=== PATIENT | male | born 1960 | race Two or more races ===

== ENCOUNTER 2021-04-22 10:16 | Inpatient (IN) | payer MEDICAID, OTHER ==
[~2021-04-22] VITALS: Ht 175.3 cm; Wt 71.9 kg
[2021-04-22 11:01] LABS: Basophils # (auto) 0.1 10 ^3/uL (0-0.2); Basophils % (auto) 0.4 % (0.0-2.0); Eosinophils # (auto) 0 10 ^3/uL (0-0.8); Hematocrit 50.6 % (41.0-53.0); Hemoglobin 17.1 g/dL (13.5-17.5); Lymphocytes # (auto) 1.5 10 ^3/uL (0.4-5.4); Lymphocytes % (auto) 8.8 % (10.0-50.0); Mean Corpuscular Hemoglobin 29.6 pg (28.0-32.0); Mean Corpuscular Hgb Conc. 33.9 g/dL (32.0-36.0); Mean Corpuscular Volume 87.4 fL (80.0-100.0); Monocytes # (auto) 0.4 10 ^3/uL (0-1.3); Monocytes % (auto) 2.6 % (0.0-12.0); Neutrophils % (auto) 88.2 % (37.0-80.0); Nucleated Red Blood Cells % 0.1 %; Red Blood Cells 5.79 10^6/uL (4.5-5.90); Red Cell Distribution Width 14.8 % (11.8-14.3)
[2021-04-22 11:25] LABS: Albumin 4.9 g/dL (3.4-5.0); Calcium 10.4 mg/dL (8.5-10.1); Potassium 5.1 mmol/L (3.5-5.1)
[2021-04-22 11:28] LABS: BUN/Creatinine Ratio 8.9; Bilirubin, Total 0.6 mg/dL (0.2-1.0); Total Protein 9.8 g/dL (6.4-8.2)
[2021-04-22] MEDS ORDERED: cloNIDine HCL 0.1 MG TAB PO ONE (15:45)
[2021-04-22] MEDS ORDERED: MORPHINE SULFATE 4 MG/ML SYR/VIAL IV ONE (16:00)
[2021-04-22] MEDS ORDERED: ONDANSETRON HCL 4 MG/2 ML VIAL IV ONE (16:00)
[2021-04-22] MEDS ORDERED: NITROGLYCERIN 0.4 MG SL TAB SL PRN ×2 (16:30→20:00)
[2021-04-22] MEDS ORDERED: MORPHINE SULFATE INJECTION 2 MG/2 ML SYRG IV PRN ×2 (16:30→20:00)
[2021-04-22] MEDS ORDERED: LABETALOL HCL 5 MG/ML 4ML SYRINGE IV ONE (16:30)
[2021-04-22] MEDS ORDERED: FUROSEMIDE 40 MG/4 ML VIAL IV ONE (16:30)
[2021-04-22] MEDS ORDERED: MULT1TAB28 PO (16:45)
[2021-04-22] MEDS ORDERED: LORazepam 2MG/ML-1ML VIAL IV ONE (16:45)
[2021-04-22] MEDS ORDERED: CLON0.1T PO (16:45)
[2021-04-22] MEDS ORDERED: METF-371 PO (16:45)
[2021-04-22] MEDS ORDERED: ENAL10TA13 PO (16:45)
[2021-04-22] MEDS ORDERED: MAGNESIUM SULFATE 1GM/100ML 100 ML IV ONE (18:00)
[2021-04-22] MEDS ORDERED: METOPROLOL TARTRATE 1MG/1ML-5ML VIAL IV PRN (18:00)
[2021-04-22] MEDS: SODIUM ZIRCONIUM CYCL 10 GM PAK PO SCH (18:09)
[2021-04-22] MEDS ORDERED: MORPHINE SULFATE INJECTION 2 MG/2 ML SYRG IV ONE (19:15)
[2021-04-22] MEDS ORDERED: SODIUM BICARBONATE 8.4 % INJ 50ML VIAL IV ONE ×2 (19:15→19:45)
[2021-04-22] MEDS ORDERED: ETOMIDATE (2MG/ML) 20ML VIAL IV ONE (19:33)
[2021-04-22] MEDS ORDERED: SUCCINYLCHOLINE CHLORIDE 20 MG/ML 10ML VIAL IV ONE (19:33)
[2021-04-22] MEDS ORDERED: MIDAZOLAM DRIP 50 mg/50mL 50 ML IV ONE (19:44)
[2021-04-22] MEDS ORDERED: BUMETANIDE 2.5mg/10ml (0.25 mg/ml) INJ IV ONE (19:45)
[2021-04-22] MEDS ORDERED: SODIUM BICARBONATE 50ML VIAL 50 ML in D5W 5% 1,000 ML IV SCH (19:45)
[2021-04-22 19:48] VITALS: BP 139/71
[2021-04-22] MEDS ORDERED: CLINDAMYCIN 300MG IV 50 ML IV ONE (20:00)
[2021-04-22] MEDS ORDERED: ALUM & MAG HYDROX-SIMETH LIQ(MAALOX) 30 ML PO PRN (20:00)
[2021-04-22] MEDS ORDERED: DEXTROSE (50%) 50ML SYRG IV PRN (20:00)
[2021-04-22] MEDS ORDERED: LORazepam 0.5 MG TAB PO PRN (20:00)
[2021-04-22] MEDS ORDERED: ONDANSETRON HCL 4 MG/2 ML VIAL IV PRN (20:00)
[2021-04-22] MEDS ORDERED: DOCUSATE SOD 100 MG CAP PO PRN (20:00)
[2021-04-22] MEDS ORDERED: HYDROcodone-ACET 5/325MG TAB PO PRN (20:00)
[2021-04-22] MEDS ORDERED: ACETAMINOPHEN 325 MG TAB PO PRN (20:00)
[2021-04-22] MEDS ORDERED: AZTREONAM 1GM INJ 1 GM in D5W 5% 50 ML IV ONE (21:00)
[2021-04-22] MEDS ORDERED: NOREPINEPHRINE 8 MG/250ML KIT 250 ML IV ONE (21:17)
[2021-04-22] MEDS ORDERED: DOPamine 1600MCG/ML D5W 250 ML IV ONE (21:29)
[2021-04-22 21:38] LABS: Cholesterol 185 mg/dL (< 200)
[2021-04-22 21:41] LABS: HDL Cholesterol 45 mg/dL (40-59); LDL Cholesterol 110 mg/dL (< 100); Triglycerides 321 mg/dL (< 150)
[2021-04-22 21:52] LABS: Lactic Acid w/Reflex 20.5 mmol/L (0.4-2.0)
[2021-04-22] MEDS: NOREPINEPHRINE 8 MG/250ML KIT 250 ML IV SCH (21:54)
[2021-04-22] MEDS: DOPamine 1600MCG/ML D5W 250 ML IV SCH (21:55)
[2021-04-22] MEDS ORDERED: dilTIAZem 25 MG/5 ML VIAL IV ONE (22:30)
[2021-04-23] VITALS (97 sets, daily range): BP systolic 84–209; BP diastolic 29–108
[2021-04-23] MEDS: ACCU-CHEK COMFORT CURVE STRIP VI SCH ×13 (00:15→23:00)
[2021-04-23] MEDS ORDERED: SODIUM BICARBONATE 8.4 % INJ 50ML VIAL IV ONE ×2 (00:15→03:30)
[2021-04-23 00:17] LABS: Albumin 3.6 g/dL (3.4-5.0); BUN/Creatinine Ratio 9.3; Calcium 9.3 mg/dL (8.5-10.1); Potassium 4.6 mmol/L (3.5-5.1)
[2021-04-23 00:20] LABS: Bilirubin, Total 0.8 mg/dL (0.2-1.0); Total Protein 8.2 g/dL (6.4-8.2)
[2021-04-23] MEDS ORDERED: dilTIAZem 25 MG/5 ML VIAL IV PRN (01:00)
[2021-04-23] MEDS ORDERED: PHENYLEPHRINE IV 250 ML IV ONE (01:25)
[2021-04-23] MEDS: InsuLIN REG 1unit/0.01ml Soln (100units/ml) SC SCH ×2 (01:40→06:00)
[2021-04-23] MEDS: PHENYLEPHRINE IV 250 ML IV SCH ×4 (02:15→14:45)
[2021-04-23] MEDS: PROPOFOL 100 ML IV SCH (02:45)
[2021-04-23] MEDS: MIDAZOLAM DRIP 50 mg/50mL 50 ML IV SCH ×2 (02:53→11:28)
[2021-04-23] MEDS: LABETALOL HCL 200 MG TAB PO SCH ×2 (02:54→10:00)
[2021-04-23] MEDS ORDERED: SODIUM BICARBONATE 8.4% INJ 50ML SYRINGE ONE (03:29)
[2021-04-23] MEDS: CLINDAMYCIN 300MG IV 50 ML IV SCH ×3 (04:00→20:18)
[2021-04-23 04:42] LABS: Basophils # (auto) 0 10 ^3/uL (0-0.2); Basophils % (auto) 0.1 % (0.0-2.0); Eosinophils # (auto) 0 10 ^3/uL (0-0.8); Hematocrit 41.9 % (41.0-53.0); Hemoglobin 13.8 g/dL (13.5-17.5); Lymphocytes # (auto) 2.2 10 ^3/uL (0.4-5.4); Lymphocytes % (auto) 9.7 % (10.0-50.0); Mean Corpuscular Hemoglobin 29.3 pg (28.0-32.0); Mean Corpuscular Hgb Conc. 32.9 g/dL (32.0-36.0); Monocytes # (auto) 2.2 10 ^3/uL (0-1.3); Monocytes % (auto) 9.5 % (0.0-12.0); Neutrophils # (auto) 18.7 10 ^3/uL (1.6-8.6); Neutrophils % (auto) 80.7 % (37.0-80.0); Red Blood Cells 4.71 10^6/uL (4.5-5.90); Red Cell Distribution Width 14.8 % (11.8-14.3); White Blood Cell 23.2 10^3/uL (4.4-10.8)
[2021-04-23 04:56] LABS: INR 1.11 (0.9-1.15); Partial Thromboplastin Time 24.1 sec (23.0-31.2)
[2021-04-23 05:07] LABS: % Iron Saturation 13.1 % (20-55); Albumin 3.1 g/dL (3.4-5.0); BUN/Creatinine Ratio 10.8; Bilirubin, Total 0.5 mg/dL (0.2-1.0); Magnesium 3.2 mg/dL (1.6-2.6); Total Protein 6.3 g/dL (6.4-8.2); Uric Acid 17.9 mg/dL (3.5-7.2)
[2021-04-23] MEDS ORDERED: BUMETANIDE 2.5mg/10ml (0.25 mg/ml) INJ IV SCH (06:00)
[2021-04-23] MEDS ORDERED: InsuLIN R (HUMAN) 100 UNITS in SODIUM CHL 0.9% 99 ML IV SCH (06:30)
[2021-04-23] MEDS ORDERED: DEXTROSE (50%) 50ML SYRG IV PRN (06:30)
[2021-04-23] MEDS: SODIUM BICARBONATE 50ML VIAL 50 ML in D5W/SOD CHL 0.45% 1,000 ML IV SCH ×2 (08:05→18:56)
[2021-04-23 08:31] LABS: Lactic Acid w/Reflex 19.3 mmol/L (0.4-2.0)
[2021-04-23] MEDS: InsuLIN R (HUMAN) 100 UNITS in SODIUM CHL 0.9% 99 ML IV SCH ×5 (09:15→23:14)
[2021-04-23] MEDS ORDERED: OPTISON 3ml Vial for INJ IV ONE (09:57)
[2021-04-23] MEDS ORDERED: AZTREONAM 1GM INJ 0.5 GM in D5W 5% 50 ML IV SCH (10:00)
[2021-04-23] MEDS: ENOXAPARIN SOD 30 MG/0.3 ML SYRINGE SC SCH (10:40)
[2021-04-23] MEDS: SODIUM ZIRCONIUM CYCL 10 GM PAK PO SCH (10:40)
[2021-04-23] MEDS: DOPamine 1600MCG/ML D5W 250 ML IV SCH (10:45)
[2021-04-23] MEDS: NOREPINEPHRINE 8 MG/250ML KIT 250 ML IV SCH ×2 (10:49→16:51)
[2021-04-23] MEDS ORDERED: MEROPENEM 1GM IVPB 100 ML IV SCH (11:00)
[2021-04-23] MEDS ORDERED: HEPARIN 1,000 UNITS/ml 1ML VIAL ONE (11:40)
[2021-04-23] MEDS ORDERED: HEPARIN 1,000 UNITS/ml 1ML VIAL IV ONE (11:45)
[2021-04-23 14:06] LABS: Albumin 2.5 g/dL (3.4-5.0); Potassium 3.1 mmol/L (3.5-5.1)
[2021-04-23 14:08] LABS: BUN/Creatinine Ratio 11.5
[2021-04-23 14:09] LABS: Lactic Acid w/Reflex 10.1 mmol/L (0.4-2.0)
[2021-04-23 14:11] LABS: Bilirubin, Total 0.4 mg/dL (0.2-1.0); Total Protein 5.4 g/dL (6.4-8.2)
[2021-04-23 14:13] LABS: Calcium 5.9 mg/dL (8.5-10.1)
[2021-04-23] MEDS: LINEZOLID 600MG/300ML 300 ML IV SCH (14:31)
[2021-04-23 15:50] LABS: Alcohol, Urine < 3.0 mg/dL (0-10); Barbiturate Scree,Urine NEGATIVE (NEGATIVE); Cannabinoid Screen, Urine NEGATIVE (NEGATIVE); Protein, Urine 29.6 mg/dL (0.0-11.9); Sodium Urine 114 mmol/L (40-220)
[2021-04-23 15:58] LABS: Amphetamine Screen, Urine NEGATIVE (NEGATIVE); Benzodiazephine Screen, Urine POSITIVE (NEGATIVE); Cocaine Screen, Urine NEGATIVE (NEGATIVE); Creatinine, Urine 13 mg/dL (30.0-125.0); Opiate Scree,Urine NEGATIVE (NEGATIVE); Phencyclidine Screen, Urine NEGATIVE (NEGATIVE)
[2021-04-23] MEDS: CALCIUM GLUC 1,000mg/50ml-NS 50 ML IV SCH ×2 (16:28→17:27)
[2021-04-23] MEDS ORDERED: POTASSIUM CHL 20MEQ/100ML 300 ML IV ONE (17:05)
[2021-04-23] MEDS: POTASSIUM CHL 20MEQ/100ML 100 ML IV SCH ×3 (17:21→21:51)
[2021-04-23 21:29] LABS: BUN/Creatinine Ratio 11.6; Calcium 6.5 mg/dL (8.5-10.1); Potassium 3.7 mmol/L (3.5-5.1)
[2021-04-23] MEDS: MEROPENEM 1GM IVPB 100 ML IV SCH (23:11)
[2021-04-24] VITALS (101 sets, daily range): BP systolic 72–144; BP diastolic 3–86
[2021-04-24] MEDS: ACCU-CHEK COMFORT CURVE STRIP VI SCH ×16 (00:51→22:50)
[2021-04-24] MEDS: InsuLIN R (HUMAN) 100 UNITS in SODIUM CHL 0.9% 99 ML IV SCH ×6 (00:52→16:45)
[2021-04-24] MEDS: PROPOFOL 100 ML IV SCH ×3 (00:55→11:15)
[2021-04-24] MEDS: MIDAZOLAM DRIP 50 mg/50mL 50 ML IV SCH ×2 (02:18→11:16)
[2021-04-24] MEDS: LINEZOLID 600MG/300ML 300 ML IV SCH ×2 (02:18→16:42)
[2021-04-24] MEDS: CLINDAMYCIN 300MG IV 50 ML IV SCH ×3 (04:04→20:48)
[2021-04-24] MEDS: SODIUM BICARBONATE 50ML VIAL 50 ML in D5W/SOD CHL 0.45% 1,000 ML IV SCH (04:04)
[2021-04-24 05:04] LABS: Basophils # (auto) 0 10 ^3/uL (0-0.2); Basophils % (auto) 0.2 % (0.0-2.0); Eosinophils # (auto) 0 10 ^3/uL (0-0.8); Eosinophils % (auto) 0.3 % (0.0-7.0); Hematocrit 44.7 % (41.0-53.0); Hemoglobin 15.4 g/dL (13.5-17.5); Lymphocytes # (auto) 2.6 10 ^3/uL (0.4-5.4); Lymphocytes % (auto) 21.2 % (10.0-50.0); Mean Corpuscular Hgb Conc. 34.6 g/dL (32.0-36.0); Monocytes # (auto) 0.9 10 ^3/uL (0-1.3); Monocytes % (auto) 7.5 % (0.0-12.0); Neutrophils # (auto) 8.7 10 ^3/uL (1.6-8.6); Neutrophils % (auto) 70.8 % (37.0-80.0); Nucleated Red Blood Cells % 0.1 %; Red Blood Cells 5.32 10^6/uL (4.5-5.90); Red Cell Distribution Width 14.9 % (11.8-14.3); White Blood Cell 12.3 10^3/uL (4.4-10.8)
[2021-04-24] MEDS: PHENYLEPHRINE IV 250 ML IV SCH ×2 (05:31→19:25)
[2021-04-24] MEDS: DOPamine 1600MCG/ML D5W 250 ML IV SCH (08:14)
[2021-04-24 08:37] LABS: Albumin 2.8 g/dL (3.4-5.0); Potassium 3.9 mmol/L (3.5-5.1)
[2021-04-24 08:41] LABS: BUN/Creatinine Ratio 12.1; Bilirubin, Total 0.5 mg/dL (0.2-1.0); Phosphorus 7.5 mg/dL (2.5-4.90); Total Protein 6.1 g/dL (6.4-8.2)
[2021-04-24] MEDS ORDERED: CALCIUM GLUC 1,000mg/50ml-NS 50 ML IV ONE (09:45)
[2021-04-24] MEDS: ENOXAPARIN SOD 30 MG/0.3 ML SYRINGE SC SCH (09:51)
[2021-04-24] MEDS ORDERED: SODIUM CHL 0.9% 1000 ML BAG XX ONE (11:00)
[2021-04-24] MEDS: NOREPINEPHRINE 8 MG/250ML KIT 250 ML IV SCH (12:22)
[2021-04-24] MEDS: MEROPENEM 1GM IVPB 100 ML IV SCH (13:14)
[2021-04-24 21:09] LABS: Calcium 6.5 mg/dL (8.5-10.1); Phosphorus 6.1 mg/dL (2.5-4.90)
[2021-04-24] MEDS: MEROPENEM 500MG IVPB 50 ML IV SCH (22:50)
[2021-04-25] VITALS (104 sets, daily range): BP systolic 62–124; BP diastolic 45–76
[2021-04-25] MEDS: ACCU-CHEK COMFORT CURVE STRIP VI SCH ×11 (01:30→23:55)
[2021-04-25] MEDS: DOPamine 1600MCG/ML D5W 250 ML IV SCH ×2 (01:36→18:58)
[2021-04-25] MEDS: LINEZOLID 600MG/300ML 300 ML IV SCH ×2 (02:31→14:00)
[2021-04-25] MEDS: PHENYLEPHRINE IV 250 ML IV SCH ×3 (03:45→20:25)
[2021-04-25] MEDS: CLINDAMYCIN 300MG IV 50 ML IV SCH ×2 (04:44→11:50)
[2021-04-25 05:09] LABS: Basophils # (auto) 0.1 10 ^3/uL (0-0.2); Basophils % (auto) 0.5 % (0.0-2.0); Eosinophils # (auto) 0 10 ^3/uL (0-0.8); Eosinophils % (auto) 0.2 % (0.0-7.0); Hematocrit 39.9 % (41.0-53.0); Hemoglobin 13.7 g/dL (13.5-17.5); Lymphocytes # (auto) 2.2 10 ^3/uL (0.4-5.4); Lymphocytes % (auto) 18.8 % (10.0-50.0); Mean Corpuscular Hemoglobin 29.2 pg (28.0-32.0); Mean Corpuscular Hgb Conc. 34.2 g/dL (32.0-36.0); Mean Corpuscular Volume 85.3 fL (80.0-100.0); Monocytes # (auto) 0.8 10 ^3/uL (0-1.3); Monocytes % (auto) 6.9 % (0.0-12.0); Neutrophils # (auto) 8.7 10 ^3/uL (1.6-8.6); Neutrophils % (auto) 73.6 % (37.0-80.0); Nucleated Red Blood Cells % 0.1 %; Red Blood Cells 4.68 10^6/uL (4.5-5.90); Red Cell Distribution Width 14.6 % (11.8-14.3); White Blood Cell 11.8 10^3/uL (4.4-10.8)
[2021-04-25 05:20] LABS: Albumin 2.6 g/dL (3.4-5.0); Calcium 6.3 mg/dL (8.5-10.1); Potassium 3.3 mmol/L (3.5-5.1)
[2021-04-25 05:25] LABS: Bilirubin, Total 0.5 mg/dL (0.2-1.0)
[2021-04-25] MEDS: MEROPENEM 500MG IVPB 50 ML IV SCH ×2 (10:20→21:21)
[2021-04-25] MEDS: ENOXAPARIN SOD 30 MG/0.3 ML SYRINGE SC SCH (10:20)
[2021-04-25] MEDS ORDERED: POTASSIUM CHLORIDE 20 MEQ, LIDOCAINE 1% (LOCAL ANESTH.) 2 ML in SODIUM CHL 0.9% 100 ML IV ONE (10:45)
[2021-04-25] MEDS ORDERED: DEXTROSE (50%) 50ML SYRG IV PRN (11:00)
[2021-04-25] MEDS: InsuLIN REG 1unit/0.01ml Soln (100units/ml) SC SCH ×4 (11:44→23:57)
[2021-04-25] MEDS: NOREPINEPHRINE 8 MG/250ML KIT 250 ML IV SCH (12:34)
[2021-04-25 13:50] LABS: Hepatitis A Ab IgM Negative; Hepatitis B Core IgM Negative; Hepatitis B Surface Antigen Negative (Negative); Hepatitis C Antibody Negative (Negative)
[2021-04-25] MEDS: PROPOFOL 100 ML IV SCH (14:15)
[2021-04-25] MEDS ORDERED: PANTOPRAZOLE 40 MG/10 ML VIAL INJ IV ONE (16:30)
[2021-04-25] MEDS: MIDAZOLAM DRIP 50 mg/50mL 50 ML IV SCH (20:15)
[2021-04-26] VITALS (94 sets, daily range): BP systolic 86–122; BP diastolic 55–84
[2021-04-26] MEDS: LINEZOLID 600MG/300ML 300 ML IV SCH ×2 (02:51→14:40)
[2021-04-26] MEDS: ACCU-CHEK COMFORT CURVE STRIP VI SCH ×5 (04:00→22:31)
[2021-04-26] MEDS: InsuLIN REG 1unit/0.01ml Soln (100units/ml) SC SCH ×5 (04:44→23:00)
[2021-04-26] MEDS: PHENYLEPHRINE IV 250 ML IV SCH ×3 (04:45→21:25)
[2021-04-26 05:10] LABS: Basophils # (auto) 0 10 ^3/uL (0-0.2); Basophils % (auto) 0.1 % (0.0-2.0); Eosinophils # (auto) 0 10 ^3/uL (0-0.8); Eosinophils % (auto) 0.2 % (0.0-7.0); Hematocrit 38.6 % (41.0-53.0); Hemoglobin 13.6 g/dL (13.5-17.5); Lymphocytes # (auto) 1.4 10 ^3/uL (0.4-5.4); Lymphocytes % (auto) 14.1 % (10.0-50.0); Mean Corpuscular Hemoglobin 29.9 pg (28.0-32.0); Mean Corpuscular Hgb Conc. 35.2 g/dL (32.0-36.0); Mean Corpuscular Volume 84.9 fL (80.0-100.0); Monocytes # (auto) 0.7 10 ^3/uL (0-1.3); Monocytes % (auto) 7.1 % (0.0-12.0); Neutrophils # (auto) 7.6 10 ^3/uL (1.6-8.6); Neutrophils % (auto) 78.5 % (37.0-80.0); Red Blood Cells 4.54 10^6/uL (4.5-5.90); Red Cell Distribution Width 14.6 % (11.8-14.3); White Blood Cell 9.7 10^3/uL (4.4-10.8)
[2021-04-26 05:31] LABS: Calcium 7.4 mg/dL (8.5-10.1); Potassium 3.4 mmol/L (3.5-5.1)
[2021-04-26 05:38] LABS: Albumin 2.6 g/dL (3.4-5.0); BUN/Creatinine Ratio 15.8; Bilirubin, Total 0.6 mg/dL (0.2-1.0); Total Protein 6.6 g/dL (6.4-8.2)
[2021-04-26] MEDS: ENOXAPARIN SOD 30 MG/0.3 ML SYRINGE SC SCH (10:21)
[2021-04-26] MEDS: MEROPENEM 500MG IVPB 50 ML IV SCH ×2 (10:21→22:32)
[2021-04-26] MEDS: PANTOPRAZOLE 40 MG/10 ML VIAL INJ IV SCH (10:21)
[2021-04-26] MEDS: PROPOFOL 100 ML IV SCH (11:10)
[2021-04-26] MEDS ORDERED: ERGOCALCIFEROL 50,000 UNIT(1.25MG) CAP PO SCH (12:00)
[2021-04-26] MEDS: DOPamine 1600MCG/ML D5W 250 ML IV SCH (12:20)
[2021-04-26] MEDS: MIDAZOLAM DRIP 50 mg/50mL 50 ML IV SCH (20:15)
[2021-04-26] MEDS: NOREPINEPHRINE 8 MG/250ML KIT 250 ML IV SCH (21:30)
[2021-04-27] VITALS (54 sets, daily range): BP systolic 100–168; BP diastolic 70–113
[2021-04-27] MEDS: LINEZOLID 600MG/300ML 300 ML IV SCH ×2 (02:00→13:02)
[2021-04-27] MEDS: InsuLIN REG 1unit/0.01ml Soln (100units/ml) SC SCH ×6 (04:00→20:41)
[2021-04-27] MEDS: ACCU-CHEK COMFORT CURVE STRIP VI SCH ×6 (04:00→20:25)
[2021-04-27] MEDS: DOPamine 1600MCG/ML D5W 250 ML IV SCH (05:42)
[2021-04-27 07:03] LABS: BUN/Creatinine Ratio 24.7; Calcium 8.7 mg/dL (8.5-10.1); Potassium 3.6 mmol/L (3.5-5.1)
[2021-04-27] MEDS: PHENYLEPHRINE IV 250 ML IV SCH (07:23)
[2021-04-27] MEDS: MEROPENEM 500MG IVPB 50 ML IV SCH (08:47)
[2021-04-27] MEDS: PANTOPRAZOLE 40 MG/10 ML VIAL INJ IV SCH (08:47)
[2021-04-27] MEDS: ENOXAPARIN SOD 30 MG/0.3 ML SYRINGE SC SCH (08:48)
[2021-04-27] MEDS: MORPHINE SULFATE INJECTION 2 MG/2 ML SYRG IV PRN ×2 (12:16→18:42)
[2021-04-27] MEDS ORDERED: LABETALOL HCL 5 MG/ML 4ML SYRINGE IV PRN (16:00)
[2021-04-27] MEDS: MEROPENEM 1GM IVPB 100 ML IV SCH (22:14)
[2021-04-28] VITALS (10 sets, daily range): BP systolic 127–172; BP diastolic 83–107
[2021-04-28] MEDS: LINEZOLID 600MG/300ML 300 ML IV SCH ×2 (01:58→14:00)
[2021-04-28] MEDS: ACCU-CHEK COMFORT CURVE STRIP VI SCH ×6 (05:42→21:00)
[2021-04-28] MEDS: InsuLIN REG 1unit/0.01ml Soln (100units/ml) SC SCH ×6 (05:43→21:00)
[2021-04-28 06:11] LABS: BUN/Creatinine Ratio 31.4; Calcium 9.1 mg/dL (8.5-10.1); Potassium 3.5 mmol/L (3.5-5.1)
[2021-04-28] MEDS: MEROPENEM 1GM IVPB 100 ML IV SCH ×2 (09:29→22:00)
[2021-04-28] MEDS: ENOXAPARIN SOD 40 MG/0.4 ML SYRINGE SC SCH (09:33)
[2021-04-28] MEDS: amLODIPine BESYLATE 5 MG TAB PO SCH (10:00)
[2021-04-28] MEDS: METOPROLOL TARTRATE 25 MG TAB PO SCH ×3 (10:00→23:00)
[2021-04-28] MEDS: PANTOPRAZOLE 40 MG/10 ML VIAL INJ IV SCH (10:00)
[2021-04-29] MEDS: LINEZOLID 600MG/300ML 300 ML IV SCH ×2 (03:50→13:27)
[2021-04-29] MEDS: InsuLIN REG 1unit/0.01ml Soln (100units/ml) SC SCH ×6 (04:00→22:13)
[2021-04-29] MEDS: ACCU-CHEK COMFORT CURVE STRIP VI SCH ×6 (04:15→22:14)
[2021-04-29 05:00] VITALS: BP 100/66
[2021-04-29 06:34] LABS: BUN/Creatinine Ratio 37.7; Calcium 9.3 mg/dL (8.5-10.1); Potassium 3.1 mmol/L (3.5-5.1)
[2021-04-29] MEDS: MEROPENEM 1GM IVPB 100 ML IV SCH ×2 (08:37→22:14)
[2021-04-29] MEDS: PANTOPRAZOLE 40 MG/10 ML VIAL INJ IV SCH (08:37)
[2021-04-29] MEDS: ENOXAPARIN SOD 40 MG/0.4 ML SYRINGE SC SCH (08:38)
[2021-04-29] MEDS: amLODIPine BESYLATE 5 MG TAB PO SCH (08:38)
[2021-04-29] MEDS: METOPROLOL TARTRATE 25 MG TAB PO SCH ×2 (08:39→22:15)
[2021-04-29 09:00] VITALS: BP 151/98
[2021-04-29] MEDS ORDERED: POTASSIUM CHL 20 Meq TABLET PO ONE (09:00)
[2021-04-29 13:00] VITALS: BP 132/87
[2021-04-29 17:00] VITALS: BP 133/88
[2021-04-29 22:00] VITALS: BP 145/92
[2021-04-30] MEDS: LINEZOLID 600MG/300ML 300 ML IV SCH ×2 (03:58→13:33)
[2021-04-30] MEDS: ACCU-CHEK COMFORT CURVE STRIP VI SCH ×6 (04:21→20:03)
[2021-04-30] MEDS: InsuLIN REG 1unit/0.01ml Soln (100units/ml) SC SCH ×6 (04:27→20:08)
[2021-04-30 05:00] VITALS: BP 153/98
[2021-04-30 06:06] LABS: Calcium 8.8 mg/dL (8.5-10.1); Magnesium 2.5 mg/dL (1.6-2.6); Potassium 3.3 mmol/L (3.5-5.1)
[2021-04-30 06:09] LABS: BUN/Creatinine Ratio 33.6
[2021-04-30 09:00] VITALS: BP 137/84
[2021-04-30] MEDS: MEROPENEM 1GM IVPB 100 ML IV SCH ×2 (10:00→18:19)
[2021-04-30] MEDS: ENOXAPARIN SOD 40 MG/0.4 ML SYRINGE SC SCH (10:00)
[2021-04-30] MEDS: METOPROLOL TARTRATE 25 MG TAB PO SCH ×2 (10:00→21:41)
[2021-04-30] MEDS: amLODIPine BESYLATE 5 MG TAB PO SCH (10:00)
[2021-04-30] MEDS: PANTOPRAZOLE 40 MG/10 ML VIAL INJ IV SCH (10:00)
[2021-04-30 13:00] VITALS: BP 134/93
[2021-04-30] MEDS ORDERED: POTASSIUM CHL 20 Meq TABLET PO ONE (14:30)
[2021-04-30 17:00] VITALS: BP 139/85
[2021-04-30 22:00] VITALS: BP 124/74
[2021-05-01] MEDS: ACCU-CHEK COMFORT CURVE STRIP VI SCH ×5 (00:21→16:00)
[2021-05-01] MEDS: InsuLIN REG 1unit/0.01ml Soln (100units/ml) SC SCH ×5 (00:21→16:00)
[2021-05-01] MEDS: LINEZOLID 600MG/300ML 300 ML IV SCH ×2 (01:41→14:00)
[2021-05-01 05:00] VITALS: BP 137/102
[2021-05-01] MEDS: MEROPENEM 1GM IVPB 100 ML IV SCH ×2 (05:05→09:30)
[2021-05-01 09:00] VITALS: BP 111/71
[2021-05-01] MEDS: PANTOPRAZOLE 40 MG/10 ML VIAL INJ IV SCH (09:30)
[2021-05-01] MEDS: ENOXAPARIN SOD 40 MG/0.4 ML SYRINGE SC SCH (09:31)
[2021-05-01] MEDS: METOPROLOL TARTRATE 25 MG TAB PO SCH (09:32)
[2021-05-01] MEDS: amLODIPine BESYLATE 5 MG TAB PO SCH (09:32)
[2021-05-01 13:00] VITALS: BP 122/61
[2021-05-01 15:57] VITALS: BP 111/71
== END 2021-05-01 16:40 | disposition home or self-care (01) | DRG 720 ==
LOC: ER 10:16 → TELE 16:23 → ICU WEST 23:28 → TELE-EAST 04-28 08:14
PROVIDERS: ADMIT Hospitalist; ATTEND Internal Medicine
PROC: 5A1955Z Respiratory Ventilation, Greater than 96 Consecutive Hours (ICD-10-PCS; principal; 2021-04-23)
PROC: 0BH17EZ Insertion of Endotracheal Airway into Trachea, Via Natural or Artificial Opening (ICD-10-PCS; 2021-04-23)
PROC: 02HV33Z Insertion of Infusion Device into Superior Vena Cava, Percutaneous Approach (ICD-10-PCS; 2021-04-23)
PROC: B548ZZA Ultrasonography of Superior Vena Cava, Guidance (ICD-10-PCS; 2021-04-23)
PROC: 06HM33Z Insertion of Infusion Device into Right Femoral Vein, Percutaneous Approach (ICD-10-PCS; 2021-04-23)
PROC: B54BZZA Ultrasonography of Right Lower Extremity Veins, Guidance (ICD-10-PCS; 2021-04-23)
PROC: 5A1D70Z Performance of Urinary Filtration, Intermittent, Less than 6 Hours Per Day (ICD-10-PCS; 2021-04-24)
DX: A41.9 Sepsis, unspecified organism (principal); N17.0 Acute kidney failure with tubular necrosis; J96.01 Acute respiratory failure with hypoxia; R65.21 Severe sepsis with septic shock; E11.10 Type 2 diabetes mellitus with ketoacidosis without coma; G93.41 Metabolic encephalopathy; G93.49 Other encephalopathy; I13.11 Hypertensive heart and chronic kidney disease without heart failure, with stage 5 chronic kidney disease, or end stage renal disease; E87.1 Hypo-osmolality and hyponatremia; J98.11 Atelectasis; I16.1 Hypertensive emergency; N18.5 Chronic kidney disease, stage 5; Z20.822 Contact with and (suspected) exposure to COVID-19; N13.9 Obstructive and reflux uropathy, unspecified; K76.0 Fatty (change of) liver, not elsewhere classified; E87.6 Hypokalemia; E87.5 Hyperkalemia; E87.70 Fluid overload, unspecified; E78.5 Hyperlipidemia, unspecified; E11.22 Type 2 diabetes mellitus with diabetic chronic kidney disease; Z91.19 Patient's noncompliance with other medical treatment and regimen; Z99.2 Dependence on renal dialysis; Z88.0 Allergy status to penicillin; Z83.3 Family history of diabetes mellitus
CPT/HCPCS: 36415; 36600; 51702; 71045; 74176; 76775; 80048; 80053; 80061; 80074; 80307; 82306; 82310; 82550; 82570; 82607; 82805; 82962; 83036; 83540; 83550; 83605; 83735; 83880; 83970; 84100; 84156; 84300; 84443; 84484; 84550; 85025; 85049; 85610; 85730; 87040; 87070; 87081; 87086; 87205; 87426; 92610; 93005; 93306; 94002; 94003; 96365; 96375; 97110; 97116; 97163; 97530; C9113; G0378; J0330; J1815; J2001; J2185; J2250; J2405; J2704; J3480; J3490; J7060; Q9956

== ENCOUNTER 2022-03-03 10:25 | Inpatient (IN) | payer MEDICAID ==
[~2022-03-03] VITALS: Ht 165.1 cm; Wt 67.5 kg
[~2022-03-03 10:25] MED LIST: CLON0.1T PO; ENAL10TA13 PO; METF-371 PO; MULT1TAB28 PO
[2022-03-03] MEDS ORDERED: SODIUM CHLORIDE 0.9% 500 ML IV ONE (10:45)
[2022-03-03] MEDS ORDERED: ASPirin 81 mg TAB PO ONE (11:45)
[2022-03-03 12:10] LABS: Alanine Aminotransferase 22 U/L (16-61); Anion Gap 7 (5-15); Blood Alcohol < 3.0 mg/dL (0-5); Blood Urea Nitrogen 20 mg/dL (7-18); Carbon Dioxide 26 mmol/L (21-32); Chloride 104 mmol/L (98-107); Glucose 235 mg/dL (74-106); Magnesium 2.3 mg/dL (1.6-2.6); Potassium 4.1 mmol/L (3.5-5.1); Sodium 137 mmol/L (136-145)
[2022-03-03 12:13] LABS: Alkaline Phosphatase 87 U/L (45-117); Aspartate Aminotransferase 14 U/L (15-37); BUN/Creatinine Ratio 17.7; Bilirubin, Total 0.6 mg/dL (0.2-1.0); GFR African American 85 mL/min; GFR Non-African American 70 mL/min; Total Protein 8.3 g/dL (6.4-8.2)
[2022-03-03 12:14] LABS: INR 1.01 (0.9-1.15); Partial Thromboplastin Time 26.8 sec (23.6-33.0)
[2022-03-03 12:15] LABS: Salicylate < 1.7 mg/dL (2.8-20.0)
[2022-03-03] MEDS ORDERED: IOHEXOL 350 MG/ML 100ML IJ ONE (12:23)
[2022-03-03 12:24] LABS: Acetaminophen < 2.0 ug/mL (10-30)
[2022-03-03 13:30] LABS: Basophils # (auto) 0.1 10 ^3/uL (0-0.2); Basophils % (auto) 0.7 % (0.0-2.0); Eosinophils # (auto) 0 10 ^3/uL (0-0.8); Eosinophils % (auto) 0.1 % (0.0-7.0); Hematocrit 42.9 % (41.0-53.0); Hemoglobin 14.7 g/dL (13.5-17.5); Lymphocytes # (auto) 2.3 10 ^3/uL (0.4-5.4); Lymphocytes % (auto) 22.9 % (10.0-50.0); Mean Corpuscular Hemoglobin 28.9 pg (28.0-32.0); Mean Corpuscular Hgb Conc. 34.1 g/dL (32.0-36.0); Mean Corpuscular Volume 84.5 fL (80.0-100.0); Monocytes # (auto) 0.5 10 ^3/uL (0-1.3); Monocytes % (auto) 4.8 % (0.0-12.0); Neutrophils # (auto) 7.2 10 ^3/uL (1.6-8.6); Neutrophils % (auto) 71.5 % (37.0-80.0); Red Blood Cells 5.08 10^6/uL (4.5-5.90); Red Cell Distribution Width 14.2 % (11.8-14.3)
[2022-03-03 15:30] LABS: Alcohol, Urine < 3.0 mg/dL (0-10); Amphetamine Screen, Urine NEGATIVE (NEGATIVE); Barbiturate Scree,Urine NEGATIVE (NEGATIVE); Benzodiazephine Screen, Urine NEGATIVE (NEGATIVE); Cannabinoid Screen, Urine NEGATIVE (NEGATIVE); Cocaine Screen, Urine NEGATIVE (NEGATIVE); Opiate Scree,Urine NEGATIVE (NEGATIVE); Phencyclidine Screen, Urine NEGATIVE (NEGATIVE)
[2022-03-03 15:58] LABS: Urine Bacteria FEW /hpf (None Seen); Urine Blood Negative /uL (Negative); Urine WBC <1 /hpf (0 - 3)
[2022-03-03 16:18] LABS: Urine Specific Gravity > 1.055 (1.001-1.035)
[2022-03-03 16:43] LABS: Cholesterol 138 mg/dL (< 200)
[2022-03-03 16:46] LABS: HDL Cholesterol 43 mg/dL (40-59); LDL Cholesterol 85 mg/dL (< 100); Triglycerides 152 mg/dL (< 150)
[2022-03-03] MEDS ORDERED: levETIRAcetam 500 MG/5ML INJ IV ONE (21:09)
[2022-03-03] MEDS ORDERED: ATORVASTATIN 20 MG TAB PO SCH (22:00)
[2022-03-03 23:29] VITALS: BP 158/87
[2022-03-04] MEDS ORDERED: ASPirin 81 mg TAB PO SCH (10:00)
== END 2022-03-03 23:51 | disposition short-term general hospital (02) | DRG 45 ==
LOC: ER 10:25 → TELE 15:59
PROVIDERS: ADMIT Registered Nurse; ATTEND Registered Nurse
DX: I63.532 Cerebral infarction due to unspecified occlusion or stenosis of left posterior cerebral artery (principal); R47.01 Aphasia; E11.9 Type 2 diabetes mellitus without complications; Z20.822 Contact with and (suspected) exposure to COVID-19; I12.9 Hypertensive chronic kidney disease with stage 1 through stage 4 chronic kidney disease, or unspecified chronic kidney disease; N18.2 Chronic kidney disease, stage 2 (mild); E78.5 Hyperlipidemia, unspecified; Z79.82 Long term (current) use of aspirin; Z79.899 Other long term (current) drug therapy; Z88.0 Allergy status to penicillin; Z79.84 Long term (current) use of oral hypoglycemic drugs
CPT/HCPCS: 36415; 70450; 70496; 70498; 70551; 80053; 80061; 80307; 80320; 80329; 81001; 83036; 83735; 84484; 85610; 85730; 96360; 99291; G0378; J7060